=== PATIENT | male | born 1955 | race Caucasian/White ===

== ENCOUNTER 2017-03-26 23:34 | Emergency (ER) | payer MEDICARE, OTHER ==
[2017-03-26 23:40] VITALS: BP 122/73; PULSE 104; RESP 18; TEMP 97.4
[2017-03-26 23:42] LABS: Glucose,Whole Blood 162 mg/dL (75-99)
--- NOTE | 2017-03-26 23:49 | ED ---
General Adult HPI - General Chief complaint: Recheck/Abnormal Lab/Rx Stated complaint: Hypoglycemia Time Seen by Provider: 03/26/17 23:40 Source: patient, EMS, RN notes reviewed Mode of arrival: EMS Limitations: no limitations - History of Present Illness Initial comments: This is a 62-year-old male who presents emergency Department as an insulin- dependent diabetic. Patient states that he took his insulin but did not eat dinner. Girlfriend called EMS because the patient was acting disoriented. When EMS arrived his blood sugar was 30. Patient states he did not want to come but they made him come. They did give him some sugar orally and D50 on the way in. Patient is alert and oriented 3 currently. Patient denies any symptoms whatsoever. And patient is refusing any workup. Patient denies any patient denies numbness weakness. Patient denies lightheadedness dizziness or near syncopal episode per patient denies any chest pain palpitations difficulty breathing shortness of breath. Patient denies abdominal pain patient denies nausea vomiting diarrhea. - Related Data Home Medications Medication Instructions Recorded Confirmed Insulin Aspart [NovoLOG] 30 unit SQ BID 03/26/17 03/26/17 Allergies Allergy/AdvReac Type Severity Reaction Status Date / Time No Known Allergies Allergy Verified 03/26/17 23:40 Review of Systems ROS Statement: Those systems with pertinent positive or pertinent negative responses have been documented in the HPI. ROS Other: All systems not noted in ROS Statement are negative. Past Medical History Past Medical History: Diabetes Mellitus History of Any Multi-Drug Resistant Organisms: None Reported Past Surgical History: Back Surgery, Orthopedic Surgery Additional Past Surgical History / Comment(s): carpal tunnel right wrist Past Psychological History: No Psychological Hx Reported Smoking Status: Former smoker Past Alcohol Use History: Occasional Past Drug Use History: None Reported General Exam - General Exam Comments Initial Comments: GENERAL: Patient is well-developed and well-nourished. Patient is nontoxic and well- hydrated and is in no acute distress. ENT: Neck is soft and supple. No significant lymphadenopathy is noted. Oropharynx is clear. Moist mucous membranes. Neck has full range of motion without eliciting any pain. EYES: The sclera were anicteric and conjunctiva were pink and moist. Extraocular movements were intact and pupils were equal round and reactive to light. Eyelids were unremarkable. PULMONARY: Unlabored respirations. Good breath sounds bilaterally. No audible rales rhonchi or wheezing was noted. CARDIOVASCULAR: There is a regular rate and rhythm without any murmurs gallops or rubs. ABDOMEN: Soft and nontender with normal bowel sounds. SKIN: Skin is clear with no lesions or rashes and otherwise unremarkable. NEUROLOGIC: Patient is alert and oriented x3. Cranial nerves II through XII are grossly intact. Motor and sensory are also intact. Normal speech, volume and content. Symmetrical smile. MUSCULOSKELETAL: Normal extremities with adequate strength and full range of motion. LYMPHATICS: No significant lymphadenopathy is noted PSYCHIATRIC: Normal psychiatric evaluation. Normal interpersonal interactions appears functionally intact in deals appropriately with others. No signs of depression. No signs of anxiety. Limitations: no limitations Course Vital Signs 03/26/17 23:35 Temperature 97.4 F L Pulse Rate 104 H Respiratory 18 Rate Blood Pressure 122/73 O2 Sat by Pulse 95 Oximetry Medical Decision Making - Medical Decision Making Patient insisted that he want any workup he refused any blood draw EKG or any kind of radiological studies. Patient was alert and oriented 3 and he was denying all symptoms. - Lab Data Lab Results 03/26/17 Range/Units 23:38 POC Glucose (mg/dL) 162 H (75-99) mg/dL POC Glu Clothing Cutter ID Naila Mccrary Disposition Clinical Impression: Hypoglycemia Disposition: HOME SELF-CARE Condition: Good Instructions: Hypoglycemia in a Person with Diabetes (ED) Referrals: Carlos A Hubbard DO [Primary Care Provider] - 1-2 days Time of Disposition: 23:48
== END 2017-03-26 23:52 | disposition home or self-care (01) ==
LOC: EC 23:34
DX: E11.649 Type 2 diabetes mellitus with hypoglycemia without coma (principal); Z87.891 Personal history of nicotine dependence; Z79.4 Long term (current) use of insulin
CPT/HCPCS: 36415; 99285